=== PATIENT | male | born 1985 | race Caucasian/White ===

== ENCOUNTER 2024-05-15 23:45 | Emergency (ER) | payer SELFPAY ==
[2024-05-16] MEDS: Ibuprofen 600 MG Tab PO ONE (00:02)
[2024-05-16] MEDS: Acetaminophen/oxyCODONE 325-5 MG Tab PO ONE (00:02)
[2024-05-16] MEDS: Clindamycin HCl 150 MG Cap PO STA (00:02)
== END 2024-05-16 00:06 | disposition home or self-care (01) ==
LOC: MW.ED 23:45
DX: K08.89 Other specified disorders of teeth and supporting structures (principal); Z75.8 Other problems related to medical facilities and other health care; Z88.0 Allergy status to penicillin; Z79.899 Other long term (current) drug therapy
CPT/HCPCS: 99282; A9270; 99283